=== PATIENT | female | born 1950 | race Asian ===

== ENCOUNTER 2017-08-08 17:52 | Emergency (ER) | payer MEDICARE, OTHER ==
[~2017-08-08] VITALS: Ht 162.6 cm; Wt 59.1 kg
[2017-08-08] MEDS ORDERED: ATOR10TA84 PO (17:56)
[2017-08-08] MEDS ORDERED: LOSA25TA21 PO (17:56)
[2017-08-08] MEDS ORDERED: ACETAMINOPHEN/CODEINE 300-30 MG TABLET PO ONE (19:15)
[2017-08-08 19:55] VITALS: BP 144/72
== END 2017-08-08 19:58 | disposition home or self-care (01) ==
LOC: EMS 17:54
DX: S39.012A Strain of muscle, fascia and tendon of lower back, initial encounter (principal); M25.512 Pain in left shoulder; M79.609 Pain in unspecified limb; E78.00 Pure hypercholesterolemia, unspecified; I10 Essential (primary) hypertension; X58.XXXA Exposure to other specified factors, initial encounter; Y93.89 Activity, other specified; Y92.89 Other specified places as the place of occurrence of the external cause; Y99.8 Other external cause status
CPT/HCPCS: 99283

== ENCOUNTER 2021-09-05 01:36 | Inpatient (IN) | payer MEDICARE, MEDICAID ==
[~2021-09-05] VITALS: Ht 157.5 cm; Wt 72.8 kg
[~2021-09-05 01:36] MED LIST: ATOR10TA84 PO; LOSA-370 PO
[2021-09-05] MEDS ORDERED: AMLO2.5T96 PO (01:43)
[2021-09-05] MEDS ORDERED: PIOG30TA10 PO (01:43)
[2021-09-05] MEDS ORDERED: NITROGLYCERIN 50 MG/D5% WATER 250 ML IV PRN (01:45)
[2021-09-05 01:53] LABS: BASOPHILS % (AUTO) 0.3 % (0.0-2.0); EOSINOPHILS % (AUTO) 0.3 % (1.0-6.0); HEMATOCRIT 24.1 % (36-46); HEMOGLOBIN 7.9 g/dL (12.0-16.0); LYMPHOCYTES # (AUTO) 0.5 K/uL (1.0-4.8); LYMPHOCYTES % (AUTO) 6.6 % (22.0-44.0); MEAN CORPUSCULAR HEMOGLOBIN 30.1 pg (26.0-34.0); MEAN CORPUSCULAR VOLUME 91 fL (80-100); MONOCYTES # (AUTO) 0.7 K/uL (0.1-1.0); MONOCYTES % (AUTO) 9.4 % (2.0-9.0); NEUTROPHILS # (AUTO) 6.1 K/uL (1.8-7.7); NEUTROPHILS % (AUTO) 83.4 % (40.0-70.0); PLATELET COUNT (AUTO) 293 K/uL (150-450); RED BLOOD CELL COUNT(AUTO) 2.64 MIL/uL (4.00-5.20); RED CELL DISTRIBUTION WIDTH 14.4 % (11.5-14.5)
[2021-09-05 02:07] LABS: CALCIUM, TOTAL 8.2 mg/dL (8.8-10.5); CREATININE 2.96 mg/dL (0.60-1.30); POTASSIUM 4.5 mmol/L (3.5-5.1)
[2021-09-05 02:22] LABS: ALBUMIN 2.8 g/dL (3.4-5.0); BILIRUBIN,TOTAL 0.3 mg/dL (0.1-1.0); FREE T4 (FREE THYROXINE) 1.24 ng/dL (0.76-1.46); THYROID STIMULATING HORMONE 2.05 uIU/mL (0.36-3.74); TOTAL PROTEIN, SERUM 7.2 g/dL (6.4-8.2)
[2021-09-05] MEDS ORDERED: FUROSEMIDE 40 MG/4 ML VIAL IVP ONE (03:00)
[2021-09-05] MEDS ORDERED: ASPIRIN 81 MG CHEWABLE TABLET PO ONE (03:00)
[2021-09-05] MEDS ORDERED: 0.9% SODIUM CHLORIDE 10 ML SYRINGE IVP PRN (03:30)
[2021-09-05] MEDS ORDERED: ONDANSETRON HCL 4 MG/2 ML VIAL IVP PRN ×2 (03:30→13:45)
[2021-09-05] MEDS ORDERED: ACETAMINOPHEN 325 MG TABLET PO PRN ×2 (03:30→13:45)
[2021-09-05 04:00] LABS: COVID AG,FIA SOURCE NASOPHARYNGEAL
[2021-09-05 04:21] LABS: INFLUENZA TYPE A NEGATIVE FOR TYPE A (NEGATIVE); INFLUENZA TYPE B NEGATIVE FOR TYPE B (NEGATIVE)
[2021-09-05] MEDS ORDERED: DEXAMETHASONE SOD PHOS 4 MG/ML VIAL IVP ONE (05:00)
[2021-09-05 05:27] LABS: ABG BASE EXCESS -6.9 mmol/L (-2.0-3.0); ABG CARBOXYHEMOGLOBIN 0.1 % (0.0-1.5); ABG METHEMOGLOBIN 0.4 % (0.0-1.5); ABG OXYGEN CONTENT 10.5 mL/dL (15.0-23.0); ABG OXYHEMOGLOBIN 94.5 % (94.0-100.0); ABG PCO2 46 mmHg (35-45); ABG PH 7.259 (7.35-7.450); ABG TOTAL HEMOGLOBIN 7.8 G/dL (12.0-18.0); PO2, ARTERIAL BG 83.6 mmHg (75.0-83.0); SOURCE, BLOOD GAS ARTERIAL; TEMPERATURE, FAHRENHEIT, BG 98.6 FAHREN (96.0-98.6)
[2021-09-05 05:28] LABS: O2 DEVICE,BLOOD GAS BIPAP (ROOM AIR); SITE, BLOOD GAS RT RADIAL
[2021-09-05 06:54] LABS: C-REACTIVE PROTEIN QUANT 0.97 mg/dL (0.00-0.30)
[2021-09-05 07:07] VITALS: BP 153/74
[2021-09-05 11:30] VITALS: BP 174/71
[2021-09-05] MEDS ORDERED: HydrALAZINE HCL 20 MG/ML VIAL IVP ONE (11:45)
[2021-09-05] MEDS ORDERED: HYDROCODONE/ACETAMINOPHEN 5-325 MG TABLET PO PRN (13:45)
[2021-09-05] MEDS ORDERED: ZOLPIDEM TARTRATE 5 MG TABLET PO PRN (13:45)
[2021-09-05] MEDS ORDERED: MORPHINE SULFATE 2 MG/ML SYRINGE IVP PRN (13:45)
[2021-09-05] MEDS ORDERED: BISACODYL 10 MG RECTAL RECTAL SUPPOSITORY PR PRN (13:45)
[2021-09-05] MEDS ORDERED: MAGNESIUM HYDROXIDE SUSPENSION 30 ML UDCUP PO PRN (13:45)
[2021-09-05] MEDS: HEPARIN SODIUM,PORCINE 5,000 UNITS/ML VIAL SQ SCH (16:03)
[2021-09-05 16:15] VITALS: BP 150/65
[2021-09-05 20:20] VITALS: BP 146/73
[2021-09-05] MEDS: LOSARTAN POTASSIUM 25 MG TABLET PO SCH (20:47)
[2021-09-05] MEDS: DOCUSATE SODIUM 100 MG CAPSULE PO SCH (20:47)
[2021-09-05 23:48] VITALS: BP 134/62
[2021-09-06] MEDS: HEPARIN SODIUM,PORCINE 5,000 UNITS/ML VIAL SQ SCH ×3 (01:04→15:52)
[2021-09-06 04:15] VITALS: BP 153/68
[2021-09-06 07:55] VITALS: BP 149/70
[2021-09-06] MEDS: ATORVASTATIN CALCIUM 10 MG TABLET PO SCH (08:57)
[2021-09-06] MEDS: PANTOPRAZOLE SODIUM 40 MG DR TABLET PO SCH (08:57)
[2021-09-06] MEDS: LOSARTAN POTASSIUM 25 MG TABLET PO SCH ×2 (08:57→21:03)
[2021-09-06] MEDS: DOCUSATE SODIUM 100 MG CAPSULE PO SCH ×2 (08:57→21:03)
[2021-09-06] MEDS: AmLODIPine BESYLATE 2.5 MG TABLET PO SCH (08:57)
[2021-09-06] MEDS: FUROSEMIDE 20 MG/2 ML VIAL IVP SCH (08:58)
[2021-09-06] MEDS: DEXAMETHASONE SOD PHOS 4 MG/ML VIAL IVP SCH (08:58)
[2021-09-06 12:07] VITALS: BP 143/66
[2021-09-06 14:50] LABS: CALCIUM, TOTAL 8.2 mg/dL (8.8-10.5); CREATININE 3.28 mg/dL (0.60-1.30); POTASSIUM 5.1 mmol/L (3.5-5.1)
[2021-09-06 14:55] LABS: ALBUMIN 2.2 g/dL (3.4-5.0); BILIRUBIN,TOTAL 0.2 mg/dL (0.1-1.0); TOTAL PROTEIN, SERUM 6.4 g/dL (6.4-8.2)
[2021-09-06 16:15] VITALS: BP 147/72
[2021-09-06] MEDS ORDERED: AMLO-257 PO (17:03)
[2021-09-06] MEDS ORDERED: INSLAN SQ (17:03)
[2021-09-06] MEDS ORDERED: CALC0.253 PO (17:03)
[2021-09-06] MEDS ORDERED: FURO40TA5 PO (17:03)
[2021-09-06] MEDS ORDERED: ATOR40TA28 PO (17:03)
[2021-09-06 17:28] LABS: C-REACTIVE PROTEIN QUANT 1.8 mg/dL (0.00-0.30)
[2021-09-06] MEDS ORDERED: SODIUM CHLORIDE 0.9% 500 ML IV ONE (17:35)
[2021-09-06] MEDS ORDERED: REMDESIVIR 200 MG in SODIUM CHLORIDE 0.9% 250 ML IV ONE (18:00)
[2021-09-06 20:25] VITALS: BP 132/65
[2021-09-07] VITALS (13 sets, daily range): BP systolic 115–157; BP diastolic 60–80
[2021-09-07] MEDS: HEPARIN SODIUM,PORCINE 5,000 UNITS/ML VIAL SQ SCH ×2 (00:21→08:04)
[2021-09-07] MEDS: GuaiFENesin [SUGAR-FREE] 200 MG/10 ML SOLUTION UDCUP PO PRN ×3 (01:50→15:34)
[2021-09-07] MEDS: DOCUSATE SODIUM 100 MG CAPSULE PO SCH ×2 (08:03→20:18)
[2021-09-07] MEDS: PANTOPRAZOLE SODIUM 40 MG DR TABLET PO SCH (08:05)
[2021-09-07] MEDS: DEXAMETHASONE SOD PHOS 4 MG/ML VIAL IVP SCH (08:05)
[2021-09-07] MEDS: ATORVASTATIN CALCIUM 10 MG TABLET PO SCH (08:05)
[2021-09-07] MEDS: FUROSEMIDE 20 MG/2 ML VIAL IVP SCH (08:05)
[2021-09-07] MEDS: AmLODIPine BESYLATE 2.5 MG TABLET PO SCH (08:06)
[2021-09-07] MEDS: LOSARTAN POTASSIUM 25 MG TABLET PO SCH ×2 (08:06→20:22)
[2021-09-07 08:24] LABS: BASOPHILS % (AUTO) 0.2 % (0.0-2.0); EOSINOPHILS % (AUTO) 0 % (1.0-6.0); LYMPHOCYTES # (AUTO) 0.7 K/uL (1.0-4.8); LYMPHOCYTES % (AUTO) 8.7 % (22.0-44.0); MEAN CORPUSCULAR VOLUME 91 fL (80-100); MONOCYTES # (AUTO) 0.6 K/uL (0.1-1.0); MONOCYTES % (AUTO) 6.7 % (2.0-9.0); NEUTROPHILS # (AUTO) 7.1 K/uL (1.8-7.7); NEUTROPHILS % (AUTO) 84.4 % (40.0-70.0); PLATELET COUNT (AUTO) 261 K/uL (150-450); RED BLOOD CELL COUNT(AUTO) 2.28 MIL/uL (4.00-5.20); RED CELL DISTRIBUTION WIDTH 14.2 % (11.5-14.5)
[2021-09-07 08:46] LABS: ALBUMIN 1.9 g/dL (3.4-5.0); BILIRUBIN,TOTAL 0.2 mg/dL (0.1-1.0); CALCIUM, TOTAL 7.7 mg/dL (8.8-10.5); CREATININE 3.79 mg/dL (0.60-1.30); POTASSIUM 4.6 mmol/L (3.5-5.1); TOTAL PROTEIN, SERUM 5.7 g/dL (6.4-8.2)
[2021-09-07 08:47] LABS: HEMATOCRIT 20.7 % (36-46)
[2021-09-07] MEDS ORDERED: ALBUTEROL SULFATE HFA 90 MCG/PUFF 8 GM INHALER IH SCH (10:15)
[2021-09-07 10:56] LABS: C-REACTIVE PROTEIN QUANT 2.16 mg/dL (0.00-0.30)
[2021-09-07] MEDS ORDERED: SODIUM CHLORIDE 0.9% 1,000 ML ONE (12:32)
[2021-09-07] MEDS: REMDESIVIR 100 MG in SODIUM CHLORIDE 0.9% 250 ML IV SCH (17:22)
[2021-09-07] MEDS ORDERED: ALBUTEROL SULFATE HFA 90 MCG/PUFF 8 GM INHALER IH PRN (18:15)
[2021-09-07] MEDS: PANTOPRAZOLE SODIUM 40 MG/VIAL IVP SCH (20:22)
[2021-09-08] VITALS (22 sets, daily range): BP systolic 88–180; BP diastolic 29–69
[2021-09-08 08:33] LABS: HEMATOCRIT 24.6 % (36-46); HEMOGLOBIN 8.1 g/dL (12.0-16.0); MEAN CORPUSCULAR HEMOGLOBIN 30.3 pg (26.0-34.0); MEAN CORPUSCULAR VOLUME 92 fL (80-100); PLATELET COUNT (AUTO) 215 K/uL (150-450); RED BLOOD CELL COUNT(AUTO) 2.69 MIL/uL (4.00-5.20); RED CELL DISTRIBUTION WIDTH 17.2 % (11.5-14.5)
[2021-09-08] MEDS ORDERED: PROPOFOL 1000 MG/ISO-OSM 100 ML ONE ×2 (08:34→13:20)
[2021-09-08] MEDS ORDERED: SODIUM CHLORIDE 0.9% 1,000 ML ONE (08:44)
[2021-09-08] MEDS ORDERED: NOREPINEPHRINE 4 MG/D5%-WATER 250 ML IV ONE ×3 (08:44→17:59)
[2021-09-08] MEDS: DEXAMETHASONE SOD PHOS 4 MG/ML VIAL IVP SCH (09:00)
[2021-09-08] MEDS: PANTOPRAZOLE SODIUM 40 MG/VIAL IVP SCH ×2 (09:00→21:12)
[2021-09-08] MEDS: LOSARTAN POTASSIUM 25 MG TABLET PO SCH (09:00)
[2021-09-08] MEDS: AmLODIPine BESYLATE 2.5 MG TABLET PO SCH (09:00)
[2021-09-08] MEDS: ATORVASTATIN CALCIUM 10 MG TABLET PO SCH (09:00)
[2021-09-08] MEDS: DOCUSATE SODIUM 100 MG CAPSULE PO SCH ×2 (09:00→21:00)
[2021-09-08 09:19] LABS: ALBUMIN 2.2 g/dL (3.4-5.0); BILIRUBIN,TOTAL 0.3 mg/dL (0.1-1.0); C-REACTIVE PROTEIN QUANT 3.52 mg/dL (0.00-0.30); CALCIUM, TOTAL 7.7 mg/dL (8.8-10.5); CREATININE 4.46 mg/dL (0.60-1.30); POTASSIUM 4.7 mmol/L (3.5-5.1); TOTAL PROTEIN, SERUM 6.3 g/dL (6.4-8.2)
[2021-09-08 09:42] LABS: BAND NEUTROPHILS % (MANUAL) 2 % (0-5); LYMPHOCYTES % (MANUAL) 20 % (22-44); MONOCYTES % (MANUAL) 3 % (2-9); SEGMENTED NEUTROPHILS % 75 % (40-70)
[2021-09-08] MEDS ORDERED: SODIUM CHLORIDE 0.9% 1,000 ML IV ONE (09:45)
[2021-09-08 10:20] LABS: SOURCE, BLOOD GAS ARTERIAL
[2021-09-08 12:09] LABS: ABG METHEMOGLOBIN 0.3 % (0.0-1.5)
[2021-09-08 12:24] LABS: ABG BASE EXCESS -14.3 mmol/L (-2.0-3.0); ABG CARBOXYHEMOGLOBIN 0.8 % (0.0-1.5); ABG HCO3 13.6 mmol/L (22.0-26.0); ABG OXYGEN CONTENT 8.2 mL/dL (15.0-23.0); ABG OXYHEMOGLOBIN 82.1 % (94.0-100.0); ABG PCO2 41 mmHg (35-45); TEMPERATURE, FAHRENHEIT, BG 89.9 FAHREN (96.0-98.6)
[2021-09-08 12:26] LABS: ABG PH 7.158 (7.35-7.450)
[2021-09-08 12:27] LABS: PO2, ARTERIAL BG 38.1 mmHg (75.0-83.0); SITE, BLOOD GAS LFT BRACHIAL
[2021-09-08 12:28] LABS: O2 DEVICE,BLOOD GAS VENTILATOR (ROOM AIR); PEEP,BG 5 cm H2O; VENT MODE, BG PCV/AC (ROOM AIR); VT, ABG 410 ml
[2021-09-08 12:29] LABS: INSPIRATORY TIME, BG 0.8 SEC
[2021-09-08] MEDS ORDERED: TOCILIZUMAB 600 MG in SODIUM CHLORIDE 0.9% 70 ML IV ONE (12:45)
[2021-09-08] MEDS: PROPOFOL 1000 MG/ISO-OSM 100 ML IV PRN ×3 (12:55→21:14)
[2021-09-08] MEDS: NOREPINEPHRINE 4 MG/D5%-WATER 250 ML IV PRN ×3 (12:56→21:15)
[2021-09-08] MEDS ORDERED: LIDOCAINE 1% 10 ML VIAL SQ ONE (14:00)
[2021-09-08] MEDS ORDERED: LIDOCAINE 1% 20 ML VIAL SQ ONE (14:15)
[2021-09-08 14:45] LABS: HEMATOCRIT 19.3 % (36-46); HEMOGLOBIN 6.2 g/dL (12.0-16.0)
[2021-09-08] MEDS ORDERED: SODIUM CHLORIDE 0.9% 500 ML IV ONE (15:00)
[2021-09-08] MEDS ORDERED: SODIUM CHLORIDE 0.9% 250 ML IV ONE (15:00)
[2021-09-08] MEDS: REMDESIVIR 100 MG in SODIUM CHLORIDE 0.9% 250 ML IV SCH (17:00)
[2021-09-08 17:01] LABS: CALCIUM, TOTAL 7.2 mg/dL (8.8-10.5); CREATININE 4.82 mg/dL (0.60-1.30); POTASSIUM 4.4 mmol/L (3.5-5.1)
[2021-09-08 17:04] LABS: MAGNESIUM 2.4 mg/dL (1.80-2.40); PHOSPHORUS 7.2 mg/dL (2.5-4.9)
[2021-09-08] MEDS ORDERED: 0.9% SODIUM CHLORIDE 10 ML SYRINGE IVP ONE (18:03)
[2021-09-08] MEDS ORDERED: EPINEPHrine 1:10,000 [1 MG/10 ML] SYRINGE IVP ONE (18:03)
[2021-09-08] MEDS ORDERED: DOPamine 400MG/D5W[STANDARD] 250 ML IV PRN (18:15)
[2021-09-08] MEDS ORDERED: DOPamine 400MG/D5W[STANDARD] 250 ML IV ONE (18:49)
[2021-09-08] MEDS: VASOPRESSIN 40 UNITS in DEXTROSE 5%-WATER 98 ML IV PRN (19:00)
[2021-09-08] MEDS: PHENYLEPHRINE 200 MG/D5%-WATER 250 ML IV PRN ×2 (19:00→22:31)
[2021-09-08 19:16] LABS: GLUCOSE,POINT OF CARE 290 MG/DL (70-110)
[2021-09-08 20:46] LABS: HEMATOCRIT 25.1 % (36-46); HEMOGLOBIN 8.2 g/dL (12.0-16.0)
[2021-09-08] MEDS ORDERED: SODIUM CHLORIDE 0.9% 2,000 ML ONE (20:57)
[2021-09-08] MEDS: ETHYL ALCOHOL 62% ANTISEPTIC NASAL INHALANT 0.6 ML AMPUL NASAL SCH (21:12)
[2021-09-08 21:44] LABS: APPEARANCE,URINE CLOUDY (CLEAR); BILIRUBIN,URINE NEGATIVE (NEGATIVE); GLUCOSE, URINE (UA) 250 mg/dL (NEGATIVE); KETONES,URINE NEGATIVE (NEGATIVE); LEUKOCYTE ESTERASE ,URINE SMALL (NEGATIVE); NITRATE,URINE NEGATIVE (NEGATIVE); OCCULT BLOOD,URINE LARGE (NEGATIVE); PH,URINE 7.5 (5.0-8.0); PROTEIN,URINE SEE CONFIRM (NEGATIVE); UROBILINOGEN,URINE 0.2 mg/dL (<=1.0)
[2021-09-08 21:51] LABS: RBC,URINE 51-100 /HPF (0-2)
[2021-09-08 21:52] LABS: BACTERIA,URINE Few /HPF (None Seen); SQUAMOUS EPITHELIAL CELL,UR Rare /LPF (None Seen); SULFOSALICYLIC ACID,URINE 4+ (Negative)
[2021-09-08 21:56] LABS: SODIUM,URINE RANDOM 45 mmol/l (20-110); UREA NITROGEN,URINE RANDOM 404 mg/dL (350-1000)
[2021-09-08 22:19] LABS: PROTEIN,URINE RANDOM 910 mg/dL (0-11.9)
[2021-09-08] MEDS ORDERED: DEXTROSE 50%-WATER 25 GM/50 ML SYRINGE IVP PRN (23:30)
[2021-09-09] VITALS (10 sets, daily range): BP systolic 94–162; BP diastolic 27–50
[2021-09-09] MEDS: INSULIN LISPRO 100 UNITS/ML SQ PRN ×5 (00:10→21:31)
[2021-09-09] MEDS: NOREPINEPHRINE 4 MG/D5%-WATER 250 ML IV PRN (01:31)
[2021-09-09 02:09] LABS: ABG BASE EXCESS -12.9 mmol/L (-2.0-3.0); ABG CARBOXYHEMOGLOBIN 0.3 % (0.0-1.5); ABG HCO3 14.6 mmol/L (22.0-26.0); ABG METHEMOGLOBIN 0.3 % (0.0-1.5); ABG OXYGEN CONTENT 10.7 mL/dL (15.0-23.0); ABG OXYGEN SATURATION 85.7 % (95.0-98.0); ABG OXYHEMOGLOBIN 85.2 % (94.0-100.0); ABG PCO2 35 mmHg (35-45); ABG PH 7.241 (7.35-7.450); ABG TOTAL HEMOGLOBIN 8.9 G/dL (12.0-18.0); SOURCE, BLOOD GAS ARTERIAL; TEMPERATURE, FAHRENHEIT, BG 92.6 FAHREN (96.0-98.6)
[2021-09-09 02:11] LABS: O2 DEVICE,BLOOD GAS VENTILATOR (ROOM AIR); PEEP,BG 10 cm H2O; PO2, ARTERIAL BG 41.2 mmHg (75.0-83.0); SITE, BLOOD GAS ARTERIAL LINE; VENT MODE, BG Press. Control Vent (ROOM AIR)
[2021-09-09 02:12] LABS: SPONTANEOUS VT, BG 402 ml
[2021-09-09] MEDS: PROPOFOL 1000 MG/ISO-OSM 100 ML IV PRN ×4 (02:44→19:53)
[2021-09-09 02:55] LABS: HEMATOCRIT 22.7 % (36-46); HEMOGLOBIN 7.7 g/dL (12.0-16.0)
[2021-09-09 04:11] LABS: GLUCOSE,POINT OF CARE 273 MG/DL (70-110)
[2021-09-09 05:42] LABS: ABG BASE EXCESS -15.3 mmol/L (-2.0-3.0); ABG CARBOXYHEMOGLOBIN 0.3 % (0.0-1.5); ABG METHEMOGLOBIN 0.2 % (0.0-1.5); ABG OXYGEN CONTENT 10.3 mL/dL (15.0-23.0); ABG OXYGEN SATURATION 89.4 % (95.0-98.0); ABG PCO2 39 mmHg (35-45); ABG TOTAL HEMOGLOBIN 8.2 G/dL (12.0-18.0); PO2, ARTERIAL BG 56.7 mmHg (75.0-83.0); SOURCE, BLOOD GAS ARTERIAL
[2021-09-09 05:43] LABS: ABG PH 7.158 (7.35-7.450); SITE, BLOOD GAS ARTERIAL LINE
[2021-09-09 05:44] LABS: INSPIRATORY TIME, BG 0.8 SEC; O2 DEVICE,BLOOD GAS VENTILATOR (ROOM AIR); PEEP,BG 12 cm H2O; SPONTANEOUS VT, BG 385 ml; VENT MODE, BG Press. Control Vent (ROOM AIR)
[2021-09-09] MEDS: NOREPINEPHRINE BITARTRATE 16 MG in DEXTROSE 5%-WATER 234 ML IV PRN ×2 (06:17→22:57)
[2021-09-09 06:35] LABS: ALBUMIN 1.6 g/dL (3.4-5.0); BILIRUBIN,TOTAL 0.5 mg/dL (0.1-1.0); C-REACTIVE PROTEIN QUANT 7.8 mg/dL (0.00-0.30); CALCIUM, TOTAL 6.7 mg/dL (8.8-10.5); CREATININE 3.93 mg/dL (0.60-1.30); POTASSIUM 4.2 mmol/L (3.5-5.1); TOTAL PROTEIN, SERUM 4.8 g/dL (6.4-8.2)
[2021-09-09 06:46] LABS: GLUCOSE,POINT OF CARE 284 MG/DL (70-110)
[2021-09-09] MEDS: PANTOPRAZOLE SODIUM 40 MG/VIAL IVP SCH ×2 (08:50→20:55)
[2021-09-09] MEDS: DEXAMETHASONE SOD PHOS 4 MG/ML VIAL IVP SCH (08:50)
[2021-09-09] MEDS: ATORVASTATIN CALCIUM 10 MG TABLET PO SCH (08:50)
[2021-09-09] MEDS: ETHYL ALCOHOL 62% ANTISEPTIC NASAL INHALANT 0.6 ML AMPUL NASAL SCH ×2 (08:50→20:54)
[2021-09-09] MEDS: DOCUSATE SODIUM 100 MG CAPSULE PO SCH ×2 (08:51→20:54)
[2021-09-09 09:22] LABS: HEMATOCRIT 23.2 % (36-46); HEMOGLOBIN 7.8 g/dL (12.0-16.0); MEAN CORPUSCULAR HEMOGLOBIN 29.7 pg (26.0-34.0); MEAN CORPUSCULAR HGB CONC 33.6 G/dL (31.0-37.0); MEAN CORPUSCULAR VOLUME 89 fL (80-100); PLATELET COUNT (AUTO) 129 K/uL (150-450); RED BLOOD CELL COUNT(AUTO) 2.62 MIL/uL (4.00-5.20); RED CELL DISTRIBUTION WIDTH 16.2 % (11.5-14.5)
[2021-09-09] MEDS ORDERED: *CLINICAL-CEFEPIME DOSING CLINICAL ONE (09:30)
[2021-09-09] MEDS: VASOPRESSIN 40 UNITS in DEXTROSE 5%-WATER 98 ML IV PRN (09:35)
[2021-09-09 09:52] LABS: BAND NEUTROPHILS % (MANUAL) 3 % (0-5); LYMPHOCYTES % (MANUAL) 20 % (22-44); MONOCYTES % (MANUAL) 4 % (2-9); SEGMENTED NEUTROPHILS % 73 % (40-70)
[2021-09-09] MEDS ORDERED: DAPTOMYCIN 500 MG in SODIUM CHLORIDE 0.9% 50 ML IV SCH (10:00)
[2021-09-09] MEDS ORDERED: TOCILIZUMAB 600 MG in SODIUM CHLORIDE 0.9% 70 ML IV ONE (10:15)
[2021-09-09] MEDS ORDERED: SODIUM CHLORIDE 0.9% 250 ML IV ONE ×2 (11:42→20:50)
[2021-09-09] MEDS: PHENYLEPHRINE 200 MG/D5%-WATER 250 ML IV PRN (14:21)
[2021-09-09] MEDS ORDERED: POTASSIUM CHLORIDE 20 MEQ in NXSTAGE RFP-402 K0/CA3 5,000 ML IRRIG PRN (15:00)
[2021-09-09] MEDS ORDERED: CEFEPIME HCL 2 GM in DEXTROSE 5%-WATER 50 ML IV ONE (15:00)
[2021-09-09 15:53] LABS: HEMATOCRIT 23.2 % (36-46); HEMOGLOBIN 7.7 g/dL (12.0-16.0)
[2021-09-09] MEDS ORDERED: CEFEPIME HCL 1 GM in DEXTROSE 5%-WATER 50 ML IV SCH (16:00)
[2021-09-09] MEDS: REMDESIVIR 100 MG in SODIUM CHLORIDE 0.9% 250 ML IV SCH (16:55)
[2021-09-09] MEDS ORDERED: SODIUM BICARBONATE [ADULT] 8.4% 50 MEQ/50 ML SYRINGE IVP ONE (17:04)
[2021-09-09] MEDS ORDERED: 0.9% SODIUM CHLORIDE 10 ML SYRINGE IVP ONE (17:04)
[2021-09-09] MEDS ORDERED: CALCIUM CHLORIDE 100 MG/ML 10 ML SYRINGE IVP ONE (17:04)
[2021-09-09] MEDS ORDERED: AMIODARONE HCL 50 MG/ML 3 ML VIAL IV ONE (17:04)
[2021-09-09] MEDS ORDERED: 0.9% SODIUM CHLORIDE 1,000 ML BAG IV ONE (17:04)
[2021-09-09] MEDS ORDERED: ATROPINE SULFATE 0.1 MG/ML 10 ML SYRINGE IVP ONE (17:04)
[2021-09-09 18:11] LABS: HEMATOCRIT 21.2 % (36-46); HEMOGLOBIN 7.2 g/dL (12.0-16.0); MEAN CORPUSCULAR HGB CONC 33.9 G/dL (31.0-37.0); MEAN CORPUSCULAR VOLUME 89 fL (80-100); PLATELET COUNT (AUTO) 101 K/uL (150-450); RED CELL DISTRIBUTION WIDTH 16.1 % (11.5-14.5)
[2021-09-09 18:23] LABS: CREATININE 4.42 mg/dL (0.60-1.30); POTASSIUM 5.7 mmol/L (3.5-5.1)
[2021-09-09 18:26] LABS: CALCIUM, TOTAL 6.9 mg/dL (8.8-10.5); MAGNESIUM 2.2 mg/dL (1.80-2.40)
[2021-09-09 18:48] LABS: PHOSPHORUS 9.1 mg/dL (2.5-4.9)
[2021-09-09 19:08] LABS: BAND NEUTROPHILS % (MANUAL) 29 % (0-5); LYMPHOCYTES % (MANUAL) 13 % (22-44); SEGMENTED NEUTROPHILS % 53 % (40-70)
[2021-09-09 19:09] LABS: MONOCYTES % (MANUAL) 5 % (2-9)
[2021-09-09] MEDS: POTASSIUM CHLORIDE 15 MEQ in NXSTAGE RFP-402 K0/CA3 5,000 ML IRRIG PRN ×2 (20:08→20:09)
[2021-09-09 20:18] LABS: HEMATOCRIT 22.5 % (36-46); HEMOGLOBIN 7.5 g/dL (12.0-16.0)
[2021-09-09 20:31] LABS: GLUCOSE,POINT OF CARE 228 MG/DL (70-110)
[2021-09-09 20:31] LABS: GLUCOSE,POINT OF CARE 234 MG/DL (70-110)
[2021-09-09] MEDS ORDERED: SODIUM CHLORIDE 0.9% 500 ML IV ONE (20:50)
[2021-09-09] MEDS: CEFEPIME HCL 1 GM in DEXTROSE 5%-WATER 50 ML IV SCH (22:57)
[2021-09-09 23:31] LABS: GLUCOSE,POINT OF CARE 188 MG/DL (70-110)
[2021-09-10] VITALS (8 sets, daily range): BP systolic 102–139; BP diastolic 23–32
[2021-09-10] MEDS: INSULIN LISPRO 100 UNITS/ML SQ PRN (00:30)
[2021-09-10] MEDS: VASOPRESSIN 40 UNITS in DEXTROSE 5%-WATER 98 ML IV PRN ×2 (02:28→18:54)
[2021-09-10] MEDS: PHENYLEPHRINE 200 MG/D5%-WATER 250 ML IV PRN ×2 (04:32→21:06)
[2021-09-10 04:58] LABS: HEMATOCRIT 21.9 % (36-46); HEMOGLOBIN 7.4 g/dL (12.0-16.0)
[2021-09-10] MEDS: PROPOFOL 1000 MG/ISO-OSM 100 ML IV PRN ×2 (04:58→13:55)
[2021-09-10] MEDS: POTASSIUM CHLORIDE 15 MEQ in NXSTAGE RFP-402 K0/CA3 5,000 ML IRRIG PRN ×2 (04:58→04:59)
[2021-09-10 05:42] LABS: GLUCOSE,POINT OF CARE 122 MG/DL (70-110)
[2021-09-10 05:46] LABS: GLUCOSE,POINT OF CARE 184 MG/DL (70-110)
[2021-09-10 05:53] LABS: ALBUMIN 1.6 g/dL (3.4-5.0); BILIRUBIN,TOTAL 0.8 mg/dL (0.1-1.0); C-REACTIVE PROTEIN QUANT 13.58 mg/dL (0.00-0.30); CREATININE 3.7 mg/dL (0.60-1.30)
[2021-09-10] MEDS: CEFEPIME HCL 1 GM in DEXTROSE 5%-WATER 50 ML IV SCH ×3 (06:02→23:06)
[2021-09-10 06:21] LABS: POTASSIUM 6.3 mmol/L (3.5-5.1)
[2021-09-10] MEDS: POTASSIUM CHLORIDE 10 MEQ in NXSTAGE RFP-402 K0/CA3 5,000 ML IRRIG PRN ×2 (06:57→06:58)
[2021-09-10] MEDS: DEXAMETHASONE SOD PHOS 4 MG/ML VIAL IVP SCH (08:49)
[2021-09-10] MEDS: PANTOPRAZOLE SODIUM 40 MG/VIAL IVP SCH ×2 (08:49→21:10)
[2021-09-10] MEDS: DOCUSATE SODIUM 100 MG CAPSULE PO SCH ×2 (08:49→21:10)
[2021-09-10] MEDS: ATORVASTATIN CALCIUM 10 MG TABLET PO SCH (08:50)
[2021-09-10] MEDS: ETHYL ALCOHOL 62% ANTISEPTIC NASAL INHALANT 0.6 ML AMPUL NASAL SCH ×2 (08:52→21:11)
[2021-09-10 10:27] LABS: MAGNESIUM 2.2 mg/dL (1.80-2.40)
[2021-09-10 10:40] LABS: PHOSPHORUS 9.7 mg/dL (2.5-4.9)
[2021-09-10 10:58] LABS: HEMATOCRIT 22.7 % (36-46); HEMOGLOBIN 7.8 g/dL (12.0-16.0)
[2021-09-10] MEDS ORDERED: DAPTOMYCIN 500 MG in SODIUM CHLORIDE 0.9% 50 ML IV SCH (12:00)
[2021-09-10 12:32] LABS: GLUCOSE,POINT OF CARE 91 MG/DL (70-110)
[2021-09-10 16:26] LABS: GLUCOSE,POINT OF CARE 74 MG/DL (70-110)
[2021-09-10 17:31] LABS: GLUCOSE,POINT OF CARE 47 MG/DL (70-110)
[2021-09-10 17:31] LABS: GLUCOSE,POINT OF CARE 198 MG/DL (70-110)
[2021-09-10] MEDS ORDERED: DEXTROSE 5%-0.9% SODIUM CHL 1,000 ML IV SCH (17:45)
[2021-09-10 17:47] LABS: HEMATOCRIT 22.2 % (36-46); HEMOGLOBIN 7.3 g/dL (12.0-16.0)
[2021-09-10 18:17] LABS: CALCIUM, TOTAL 7.1 mg/dL (8.8-10.5); CREATININE 2.89 mg/dL (0.60-1.30); MAGNESIUM 2.3 mg/dL (1.80-2.40)
[2021-09-10 19:15] LABS: ABG BASE EXCESS -22.8 mmol/L (-2.0-3.0); ABG CARBOXYHEMOGLOBIN 0.4 % (0.0-1.5); ABG OXYGEN CONTENT 9.7 mL/dL (15.0-23.0); ABG OXYHEMOGLOBIN 93.6 % (94.0-100.0); ABG PCO2 48 mmHg (35-45); PO2, ARTERIAL BG 101.3 mmHg (75.0-83.0); TEMPERATURE, FAHRENHEIT, BG 98.2 FAHREN (96.0-98.6)
[2021-09-10 19:16] LABS: ABG HCO3 8.1 mmol/L (22.0-26.0); ABG PH 6.922 (7.35-7.450); ABG TOTAL HEMOGLOBIN 7.2 G/dL (12.0-18.0); SITE, BLOOD GAS RT BRACHIAL
[2021-09-10 19:17] LABS: O2 DEVICE,BLOOD GAS VENTILATOR (ROOM AIR); PEEP,BG 12 cm H2O; SOURCE, BLOOD GAS ART LINE; SPONTANEOUS VT, BG 335 ml; VENT MODE, BG PC (ROOM AIR)
[2021-09-10] MEDS: NXSTAGE RFP-402 K0/CA3 5,000 ML IRRIG PRN (19:22)
[2021-09-10] MEDS: NOREPINEPHRINE BITARTRATE 16 MG in DEXTROSE 5%-WATER 234 ML IV PRN (21:07)
[2021-09-10 21:45] LABS: HEMOGLOBIN 7.5 g/dL (12.0-16.0)
[2021-09-10] MEDS ORDERED: SODIUM BICARBONATE [ADULT] 8.4% 50 MEQ/50 ML SYRINGE IVP ONE (21:45)
[2021-09-10 21:59] LABS: CALCIUM, TOTAL 7.1 mg/dL (8.8-10.5); CREATININE 2.55 mg/dL (0.60-1.30)
[2021-09-10 22:07] LABS: POTASSIUM 7.1 mmol/L (3.5-5.1)
[2021-09-10] MEDS ORDERED: DEXTROSE 50%-WATER 25 GM/50 ML SYRINGE IVP ONE (22:30)
[2021-09-10] MEDS ORDERED: INSULIN REGULAR, HUMAN 100 UNITS/ML IVP ONE (22:30)
[2021-09-10] MEDS ORDERED: SODIUM CHLORIDE 0.9% 250 ML IV ONE (22:30)
[2021-09-11] VITALS: BP 92/18
[2021-09-11] MEDS: NXSTAGE RFP-402 K0/CA3 5,000 ML IRRIG PRN ×2 (01:41→01:42)
[2021-09-11 03:16] LABS: GLUCOSE,POINT OF CARE 82 MG/DL (70-110)
[2021-09-11 03:16] LABS: GLUCOSE,POINT OF CARE 131 MG/DL (70-110)
[2021-09-11 04:00] VITALS: BP 88/18
[2021-09-11 04:59] LABS: HEMATOCRIT 22.5 % (36-46); HEMOGLOBIN 7.4 g/dL (12.0-16.0)
[2021-09-11 05:26] LABS: GLUCOSE,POINT OF CARE 91 MG/DL (70-110)
[2021-09-11 05:42] LABS: ALBUMIN 1.3 g/dL (3.4-5.0); BILIRUBIN,TOTAL 1.6 mg/dL (0.1-1.0); C-REACTIVE PROTEIN QUANT 10.42 mg/dL (0.00-0.30); CREATININE 2.34 mg/dL (0.60-1.30); TOTAL PROTEIN, SERUM 4.2 g/dL (6.4-8.2)
[2021-09-11 06:09] LABS: POTASSIUM 6.1 mmol/L (3.5-5.1)
[2021-09-11] MEDS: CEFEPIME HCL 1 GM in DEXTROSE 5%-WATER 50 ML IV SCH (06:10)
== END 2021-09-11 06:48 | DRG 208 ==
LOC: EMS 01:42 → 5N 06:17 → ICU 09-08 08:25
PROVIDERS: ADMIT Hospitalist; ATTEND Hospitalist
PROC: 5A09357 Assistance with Respiratory Ventilation, Less than 24 Consecutive Hours, Continuous Positive Airway Pressure (ICD-10-PCS; 2021-09-05)
PROC: XW033E5 Introduction of Remdesivir Anti-infective into Peripheral Vein, Percutaneous Approach, New Technology Group 5 (ICD-10-PCS; 2021-09-06)
PROC: 30233N1 Transfusion of Nonautologous Red Blood Cells into Peripheral Vein, Percutaneous Approach (ICD-10-PCS; 2021-09-07)
PROC: 5A1945Z Respiratory Ventilation, 24-96 Consecutive Hours (ICD-10-PCS; principal; 2021-09-08)
PROC: 0BH17EZ Insertion of Endotracheal Airway into Trachea, Via Natural or Artificial Opening (ICD-10-PCS; 2021-09-08)
PROC: XW033H5 Introduction of Tocilizumab into Peripheral Vein, Percutaneous Approach, New Technology Group 5 (ICD-10-PCS; 2021-09-08)
PROC: 5A09357 Assistance with Respiratory Ventilation, Less than 24 Consecutive Hours, Continuous Positive Airway Pressure (ICD-10-PCS; 2021-09-08)
PROC: 04HY32Z Insertion of Monitoring Device into Lower Artery, Percutaneous Approach (ICD-10-PCS; 2021-09-08)
PROC: 06HY33Z Insertion of Infusion Device into Lower Vein, Percutaneous Approach (ICD-10-PCS; 2021-09-08)
PROC: B54BZZA Ultrasonography of Right Lower Extremity Veins, Guidance (ICD-10-PCS; 2021-09-08)
PROC: 06HY33Z Insertion of Infusion Device into Lower Vein, Percutaneous Approach (ICD-10-PCS; 2021-09-08)
PROC: B54CZZA Ultrasonography of Left Lower Extremity Veins, Guidance (ICD-10-PCS; 2021-09-08)
PROC: 5A12012 Performance of Cardiac Output, Single, Manual (ICD-10-PCS; 2021-09-08)
DX: U07.1 COVID-19 (principal); A41.9 Sepsis, unspecified organism; J12.82 Pneumonia due to coronavirus disease 2019; J96.01 Acute respiratory failure with hypoxia; N17.0 Acute kidney failure with tubular necrosis; I50.43 Acute on chronic combined systolic (congestive) and diastolic (congestive) heart failure; N18.6 End stage renal disease; I13.2 Hypertensive heart and chronic kidney disease with heart failure and with stage 5 chronic kidney disease, or end stage renal disease; K92.2 Gastrointestinal hemorrhage, unspecified; J91.8 Pleural effusion in other conditions classified elsewhere; Z66 Do not resuscitate; I46.9 Cardiac arrest, cause unspecified; D63.8 Anemia in other chronic diseases classified elsewhere; E11.22 Type 2 diabetes mellitus with diabetic chronic kidney disease; E78.5 Hyperlipidemia, unspecified; I50.9 Heart failure, unspecified; R68.0 Hypothermia, not associated with low environmental temperature; E11.65 Type 2 diabetes mellitus with hyperglycemia; E88.09 Other disorders of plasma-protein metabolism, not elsewhere classified; Z87.891 Personal history of nicotine dependence
CPT/HCPCS: 36600; 71045; 80048; 80053; 81001; 81002; 82271; 82550; 82570; 82728; 82805; 82962; 83735; 83880; 84100; 84145; 84156; 84300; 84439; 84443; 84484; 84540; 85014; 85018; 85025; 85379; 86140; 86850; 86900; 86901; 86923; 87040; 87070; 87340; 87804; 90935; 90947; 93005; 93306; 93308; 93970; 94002; 94003; 94640; 94660; 99291; C9113; G0378; J0171; J0282; J0360; J0461; J0692; J0878; J1100; J1265; J1644; J1815; J1940; J2370; J2704; J3480; J3490; J3535; J7030; J7040; J7042; J7050; J7060; P9016; Q9967; 36415-L1; 36415-TC; U0003